=== PATIENT | male | born 2000 | race Caucasian/White ===

== ENCOUNTER 2019-09-18 02:37 | Emergency (ER) | payer OTHER ==
--- NOTE | 2019-09-18 02:50 | ED Physician Documentation ---
PD HPI HEENT - Stated complaint Stated Complaint: EAR PX/JAW PC - Chief complaint Chief Complaint: Heent - History obtained from History obtained from: Patient (Patient is a 19-year-old male who presents with left ear pain. He denies any fevers or headache or neck pain or rashes.) Review of Systems Constitutional: reports: Reviewed and negative Eyes: reports: Reviewed and negative Ears: reports: Ear pain Nose: reports: Reviewed and negative Throat: reports: Reviewed and negative Cardiac: reports: Reviewed and negative Respiratory: reports: Reviewed and negative GI: reports: Reviewed and negative : reports: Reviewed and negative Skin: reports: Reviewed and negative Musculoskeletal: reports: Reviewed and negative Neurologic: reports: Reviewed and negative Psychiatric: reports: Reviewed and negative Endocrine: reports: Reviewed and negative Immunocompromised: reports: Reviewed and negative PD PAST MEDICAL HISTORY - Present Medications Home Medications: Ambulatory Orders Medication Instructions Recorded Confirmed Amox/Clav 875/125 [Augmentin] 1 each PO Q12H 10 Days #20 tablet 09/18/19 - Allergies Allergies/Adverse Reactions: Allergies Allergy/AdvReac Type Severity Reaction Status Date / Time No Known Drug Allergies Allergy Verified 09/18/19 02:45 PD ED PE NORMAL - Vitals Vital signs reviewed: Yes - General General: Alert and oriented X 3, No acute distress, Well developed/nourished - HEENT HEENT: Atraumatic, PERRL, Pharynx benign, Other (Left tympanic membrane is erythematous and bulging external auditory canal is patent no preauricular lymphadenopathy no pain over the mastoid process no discharge.) - Neck Neck: Supple, no meningeal sign - Cardiac Cardiac: RRR, No murmur - Respiratory Respiratory: Clear bilaterally - Abdomen Abdomen: Normal bowel sounds, Soft, Non tender, Non distended - Derm Derm: Warm and dry - Extremities Extremities: No deformity - Neuro Neuro: Alert and oriented X 3 - Psych Psych: Normal mood, Normal affect Results - Vitals Vitals: Vital Signs - 24 hr 09/18/19 02:43 Temperature 36.5 C Heart Rate 108 H Respiratory 17 Rate Blood Pressure 156/98 H O2 Saturation 98 Oxygen O2 Source Room air PD MEDICAL DECISION MAKING - ED course Complexity details: considered differential (Left otitis media, will start on Augmentin.) Departure - Departure Disposition: 01 Home, Self Care Clinical Impression: Left otitis media Qualifiers: Otitis media type: unspecified Qualified Code(s): H66.92 - Otitis media, unspecified, left ear Condition: Stable Instructions: ED Otitis Media Acute Adult Follow-Up: your, doctor [Other] - Tomorrow Prescriptions: Amox/Clav 875/125 [Augmentin] 1 each PO Q12H 10 Days #20 tablet Comments: Follow-up with your primary care provider tomorrow for recheck, take antibiotics as directed.
[2019-09-18] MEDS ORDERED: AMOX/CLAV 875 MG/125 MG TABLET PO STA (03:44)
[2019-09-18 03:57] VITALS: BP 138/98
== END 2019-09-18 04:01 | disposition home or self-care (01) ==
LOC: ED 02:37
DX: H66.92 Otitis media, unspecified, left ear (principal)
CPT/HCPCS: 99282; 99283; A9270